=== PATIENT | male | born 1950 | race Caucasian/White ===

== ENCOUNTER 2021-05-28 09:05 | Emergency (ER) | payer MEDICARE ==
[2021-05-28] MEDS ORDERED: Sodium Chloride 0.9% 10 ML Syringe FLUSH PRN (09:07)
[2021-05-28] MEDS ORDERED: Sodium Chloride 0.9% 500 ML IV SCH (09:15)
--- NOTE | 2021-05-28 09:17 | EDM.PDOC ---
ED HPI GENERAL MEDICAL PROBLEM - General Chief Complaint: Neuro Symptoms/Deficits Stated Complaint: POSSIBLE STROKE Time Seen by Provider: 05/28/21 09:05 Source of Information: Reports: Patient, EMS History Limitations: Reports: No Limitations - History of Present Illness INITIAL COMMENTS - FREE TEXT/NARRATIVE: 70 YO WM PRESENTS TO ER BY EMS COMPLAINING OF SLURRED SPEECH AND RIGHT LEG WEAKNESS WHICH BEGAN YESTERDAY AROUND 2PM. PT STATES HE WAS HOPING HIS SYMPTOMS WOULD IMPROVE/RESOLVE WHICH IS WHY HE DELAYED CALLING EMS. PT REPORTS HE HAD A RIGHT LOWER EXTREMITY ANGIOPLASTY FOR CLAUDICATION PERFORMED 1 WEEK AGO. PT WAS PLACED ON ASA, BLOOD THINNERS AND CHOLESTEROL MEDICATION AFTER PROCEDURE BUT STOPPED TAKING 3 DAYS AGO. PT DENIES HEADACHE, CHEST PAIN, SHORTNESS OF BREATH, DIZZINESS OR FACIAL DROOP. PT IS ALERT AND ORIENTED X 4. PT WAS ABLE TO PROVIDE PHONE NUMBER OF HIS SPOUSE WITHOUT DIFFICULTY. GCS-15. Onset Date: 05/27/21 Onset Time: 14:00 Location: Reports: Face, Lower Extremity, Right Quality: Reports: Dull Severity: Moderate Improves with: Reports: None Worsens with: Reports: None Associated Symptoms: Reports: No Other Symptoms, Weakness. Denies: Confusion, Chest Pain, Cough, Diaphoresis, Fever/Chills, Headaches, Nausea/Vomiting, Seizure, Shortness of Breath, Syncope - Related Data Allergies Allergy/AdvReac Type Severity Reaction Status Date / Time No Known Allergies Allergy Verified 05/28/21 09:29 ED ROS GENERAL - Review of Systems Review Of Systems: See Below Constitutional: Reports: No Symptoms HEENT: Reports: No Symptoms Respiratory: Reports: No Symptoms Cardiovascular: Reports: Blood Pressure Problem Endocrine: Reports: No Symptoms GI/Abdominal: Reports: No Symptoms : Reports: No Symptoms Musculoskeletal: Reports: No Symptoms Skin: Reports: No Symptoms Neurological: Reports: Numbness, Paresthesia, Change in Speech. Denies: Confusion, Dizziness, Headache Psychiatric: Reports: No Symptoms Hematologic/Lymphatic: Reports: No Symptoms Immunologic: Reports: No Symptoms ED EXAM, NEURO - Physical Exam Exam: See Below Exam Limited By: No Limitations General Appearance: Alert, WD/WN, Mild Distress Eye Exam: Bilateral Eye: EOMI, PERRL Throat/Mouth: Normal Inspection, Normal Lips, Normal Teeth, Normal Gums, Normal Oropharynx, Normal Voice, No Airway Compromise Head Exam: Atraumatic, Normocephalic Neck: Normal Inspection, Supple, Non-Tender, Full Range of Motion Respiratory/Chest: No Respiratory Distress, Lungs Clear, Normal Breath Sounds, No Accessory Muscle Use, Chest Non-Tender Cardiovascular: Normal Peripheral Pulses, Regular Rate, Rhythm, No Edema, No Gallop, No JVD, No Murmur, No Rub GI/Abdominal: Normal Bowel Sounds, Soft, Non-Tender, No Organomegaly, No Distention, No Abnormal Bruit, No Mass Neurological: Alert, Normal Dorsiflexion, CN II-XII Intact, Normal Plantar Flexion, No Motor/Sensory Deficits, Oriented x 3, Abnormal Sensation Back Exam: Normal Inspection, Full Range of Motion Extremities: Normal Range of Motion, Non-Tender, No Pedal Edema, Leg Pain Psychiatric: Normal Affect, Normal Mood Skin Exam: Warm, Dry, Intact, Normal Color, No Rash #1 Interpretation EKG Date: 05/28/21 Time: 09:24 Rhythm: NSR Rate (Beats/Min): 94 P-Wave: Present QRS: RBBB ST-T: Normal QT: Normal Comparison: NA - No Prior EKG *Q Meaningful Use (ADM) - VTE Risk Assess *Q Each Risk Factor Represents 2 Points: Age 60 - 74 Years Total Score 2 Point Risk Factors: 2 Each Risk Factor Represents 5 Points: Elective Major Lower Extremity Arthroplasty Total Score 5 Point Risk Factors: 5 Course - Vital Signs Last Recorded V/S: Last Vital Signs Temp 97.5 F 05/28/21 10:00 Pulse 88 05/28/21 10:00 Resp 12 05/28/21 10:00 BP 169/87 H 05/28/21 10:00 Pulse Ox 96 05/28/21 10:00 - Orders/Labs/Meds Orders: Active Orders 24 hr Category Date Time Status Assess Neurological Status [RC] CONTINUOUS Care 05/28/21 09:07 Active Blood Glucose Check, Bedside [] STAT Care 05/28/21 09:07 Active Cardiac Monitoring [] CONTINUOUS Care 05/28/21 09:07 Active Communication Order [] STAT Care 05/28/21 09:07 Active Height and Weight [] UPON Care 05/28/21 09:07 Active NIH Stroke Scale [RC] Q15M Care 05/28/21 09:07 Active NIH Stroke Scale [] STAT Care 05/28/21 09:07 Active Oxygen Therapy, ED [] ASDIRECTED Care 05/28/21 09:07 Active Peripheral IV Care [RC] . DIRECTED Care 05/28/21 09:07 Active Vital Signs [RC] Q15M Care 05/28/21 09:07 Active INR,PT,PROTHROMBIN TIME [COAG] Stat Lab 05/28/21 09:17 Received PTT,PARTIAL THROMBOPLSTIN TIME [COAG] Stat Lab 05/28/21 09:17 Received Sodium Chloride 0.9% [Normal Saline] 1,000 ml Med 05/28/21 09:35 Active IV .BOLUS Sodium Chloride 0.9% [Normal Saline] 500 ml Med 05/28/21 09:15 Active IV BOLUS Sodium Chloride 0.9% [Saline Flush] Med 05/28/21 09:07 Active 10 ml FLUSH Q8HR PRN Peripheral IV Insertion Adult [OM.PC] Stat Oth 05/28/21 09:07 Ordered Peripheral IV Insertion Adult [OM.PC] Stat Oth 05/28/21 09:07 Ordered Resuscitation Status Stat Resus Stat 05/28/21 09:07 Ordered EKG 12 Lead [EK] Stat Ther 05/28/21 09:07 Ordered Medication Orders Sodium Chloride (Normal Saline) 500 mls @ 1,000 mls/hr IV BOLUS KAROLINE Sodium Chloride (Normal Saline) 1,000 mls @ 999 mls/hr IV .BOLUS ONE Stop: 05/28/21 10:35 Sodium Chloride (Sodium Chloride 0.9% 10 Ml Syringe) 10 ml FLUSH Q8HR PRN PRN Reason: keep vein open Labs: Laboratory Tests 05/28/21 05/28/21 05/28/21 Range/Units 09:12 09:17 09:17 WBC 6.83 (5.00-10.00) 10^3/uL RBC 4.64 (4.50-6.00) 10^6/uL Hgb 14.5 (13.0-17.0) g/dL Hct 43.0 (40.0-52.0) % MCV 92.7 H (82.0-92.0) fL MCH 31.3 H (27.0-31.0) pg MCHC 33.7 (32.0-36.0) g/dL RDW 13.8 (11.5-14.5) % Plt Count 201 (150-400) 10^3/uL MPV 8.9 (7.4-10.4) fL Immature Gran % (Auto) 0.3 (0.0-5.0) % Neut % (Auto) 63.9 (50.0-70.0) % Lymph % (Auto) 25.6 (20.0-40.0) % [place] % (Auto) 8.1 H (2.0-8.0) % Eos % (Auto) 1.8 (1.0-3.0) % Baso % (Auto) 0.3 (0.0-1.0) % Neut # (Auto) 4.37 (2.50-7.00) 10^3/uL Lymph # (Auto) 1.75 (1.00-4.00) 10^3/uL [place] # (Auto) 0.55 (0.10-0.80) 10^3/uL Eos # (Auto) 0.12 (0.10-0.30) 10^3/uL Baso # (Auto) 0.02 (0.00-0.10) 10^3/uL Immature Gran # (Auto) 0.02 (0.00-0.50) 10^3/uL Sodium 140 (136-145) mmol/L Potassium 3.7 (3.5-5.1) mmol/L Chloride 102 (98-107) mmol/L Carbon Dioxide 27.9 (21.0-32.0) mmol/L Anion Gap 13.8 (5-15) mmol/L BUN 12 (7-18) mg/dL Creatinine 0.87 (0.51-1.17) mg/dL Est Cr Clr Drug Dosing 71.76 mL/min Estimated GFR (MDRD) > 60 mL/min Glucose 128 (70-140) mg/dL POC Glucose 126 (70-140) mg/dL Calcium 8.9 (8.7-10.3) mg/dL Total Bilirubin 0.8 (0.2-1.0) mg/dL AST 43 H (15-37) U/L ALT 66 H (14-63) U/L Alkaline Phosphatase 83 (46-116) U/L Troponin I High Sens 11.800 (0-76.000) pg/mL Total Protein 7.0 (6.4-8.2) g/dL Albumin 3.52 (3.40-5.00) g/dL Meds: Medications Generic Name Dose Route Start Last Admin Trade Name Freq PRN Reason Stop Dose Admin Sodium Chloride 500 mls @ 1,000 mls/hr 05/28/21 09:15 Normal Saline IV BOLUS KAROLINE Sodium Chloride 1,000 mls @ 999 mls/hr 05/28/21 09:35 Normal Saline IV 05/28/21 10:35 .BOLUS ONE Sodium Chloride 10 ml 05/28/21 09:07 Sodium Chloride 0.9% 10 Ml Syringe FLUSH Q8HR PRN keep vein open Discontinued Medications Generic Name Dose Route Start Last Admin Trade Name Freq PRN Reason Stop Dose Admin Sodium Chloride Confirm 05/28/21 09:31 Normal Saline Administered 05/28/21 09:32 Dose 1,000 mls @ as directed .ROUTE .STK-MED ONE - Radiology Interpretation Free Text/Narrative:: CT HEAD-NAD Departure - Departure Time of Disposition: 10:10 Disposition: DC/Tfer to Acute Hospital 02 Preliminary Cause of *Q: Other_Special Instruction Condition: Serious Clinical Impression: Garbled speech, Paresthesia of right lower extremity - Discharge Information Referrals: Leonora Herndon MD [Primary Care Provider] - Forms: ED Department Discharge, Interfacility Transfer [facility] Sepsis Event Note (ED) - Focused Exam Vital Signs: Vital Signs Temp Pulse Resp BP Pulse Ox Pulse Ox 05/28/21 10:00 97.5 F 88 12 169/87 H 96 05/28/21 09:45 89 14 184/97 H 96 05/28/21 09:30 92 16 177/94 H 95 05/28/21 09:28 91 17 179/95 H 95 05/28/21 09:22 97.4 F 103 H 13 183/95 H 98 05/28/21 09:15 99 15 162/117 H 91 L 05/28/21 09:07 95 - My Orders Last 24 Hours: My Active Orders 05/28/21 09:07 Assess Neurological Status [RC] CONTINUOUS Blood Glucose Check, Bedside [RC] STAT Cardiac Monitoring [RC] CONTINUOUS Communication Order [RC] STAT Height and Weight [RC] UPON NIH Stroke Scale [RC] Q15M NIH Stroke Scale [RC] STAT Oxygen Therapy, ED [RC] ASDIRECTED Peripheral IV Care [RC] . DIRECTED Vital Signs [RC] Q15M Sodium Chloride 0.9% [Saline Flush] 10 ml FLUSH Q8HR PRN Peripheral IV Insertion Adult [OM.PC] Stat Peripheral IV Insertion Adult [OM.PC] Stat Resuscitation Status Stat EKG 12 Lead [EK] Stat 05/28/21 09:15 Sodium Chloride 0.9% [Normal Saline] 500 ml IV BOLUS 05/28/21 09:17 INR,PT,PROTHROMBIN TIME [COAG] Stat PTT,PARTIAL THROMBOPLSTIN TIME [COAG] Stat 05/28/21 09:35 Sodium Chloride 0.9% [Normal Saline] 1,000 ml IV .BOLUS - Assessment/Plan Last 24 Hours: My Active Orders 05/28/21 09:07 Assess Neurological Status [RC] CONTINUOUS Blood Glucose Check, Bedside [RC] STAT Cardiac Monitoring [RC] CONTINUOUS Communication Order [RC] STAT Height and Weight [RC] UPON NIH Stroke Scale [RC] Q15M NIH Stroke Scale [RC] STAT Oxygen Therapy, ED [RC] ASDIRECTED Peripheral IV Care [RC] . DIRECTED Vital Signs [RC] Q15M Sodium Chloride 0.9% [Saline Flush] 10 ml FLUSH Q8HR PRN Peripheral IV Insertion Adult [OM.PC] Stat Peripheral IV Insertion Adult [OM.PC] Stat Resuscitation Status Stat EKG 12 Lead [EK] Stat 05/28/21 09:15 Sodium Chloride 0.9% [Normal Saline] 500 ml IV BOLUS 05/28/21 09:17 INR,PT,PROTHROMBIN TIME [COAG] Stat PTT,PARTIAL THROMBOPLSTIN TIME [COAG] Stat 05/28/21 09:35 Sodium Chloride 0.9% [Normal Saline] 1,000 ml IV .BOLUS Assessment:: 1. POSSIBLE CVA Plan: 1. DISCUSSED CASE WITH DR [facility] WHO WOULD LIKE AN MRI OF BRAIN AND REQUESTED TRANSFER TO ER. DISCUSSED WITH DR JC- [facility] WHO AGREED TO ACCEPT. 2. SUPPORTIVE CARE
[2021-05-28] MEDS ORDERED: Sodium Chloride 0.9% 1,000 ML IV ONE (09:35)
--- NOTE | 2021-05-28 09:35 | CT ---
[id number] CT/CT Head Stroke Protocol EXAM: NONCONTRAST HEAD CT INDICATION: STROKE PROTOCOL. COMPARISON: None. DISCUSSION: Focal soft tissue swelling or scarring in the posterior scalp. Mild to moderate generalized atrophy. Mild multifocal white matter hypoattenuation is nonspecific, but generally ascribed to chronic small vessel ischemia. 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 No mass effect or midline shift. No acute hemorrhage or extra-axial fluid collection. No acute territorial infarct is identified. A limited look at the orbits and paranasal sinuses is unremarkable. Results called at time of dictation. IMPRESSION: 1. No acute findings. Gavin Richardson MD 05/28/21 0934 Thank you for allowing us to participate in the care of your patient.
[2021-05-28 09:48] LABS: ANION GAP 13.8 mmol/L (5-15); CHLORIDE,CL 102 mmol/L (98-107); SODIUM,NA 140 mmol/L (136-145)
[2021-05-28 10:42] LABS: PTT,PARTIAL THROMBOPLSTIN TIME 23.4 SEC (22.8-31.4)
[2021-05-28] MEDS: Sodium Chloride 0.9% 1,000 ML ONE (11:00)
[2021-05-28] MEDS ORDERED: Sodium Chloride 0.9% 1,000 ML IV SCH (14:15)
[2021-05-29] MEDS: Sodium Chloride 0.9% 1,000 ML ONE (12:29)
== END 2021-05-28 11:00 ==
LOC: KA.ED 09:05
DX: R47.81 Slurred speech (principal); R20.2 Paresthesia of skin
CPT/HCPCS: 36415; 70450; 80053; 82947; 84484; 85025; 85610; 85730; 93005; 99284; 99285-25; J7030